=== PATIENT | female | born 1965 | race American Indian/Alaskan Native ===

== ENCOUNTER 2016-06-15 09:29 | Day surgery (SDC) | payer MEDICARE ==
[2016-06-15] MEDS ORDERED: WATER FOR IRRIG STERILE IR ONE (09:55)
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
--- NOTE | 2016-06-15 10:13 | Anesthesia Day of Surgery ---
Anesthesia Day of Surgery - Day of Surgery Patient Examined: Yes Patient H&P Reviewed: Yes Patient is NPO: Yes
[2016-06-15] MEDS ORDERED: DIPRIVAN 10 MG/ML IV ONE ×2 (10:46→12:18)
[2016-06-15] MEDS ORDERED: NACL 0.9% 1000 ML 1,000 ML IV SCH (11:00)
[2016-06-15] MEDS ORDERED: XYLOCAINE MPF 2% ONE (12:10)
--- NOTE | 2016-06-15 12:47 | Operative Report ---
Operative Report Operative Report: Date of procedure: 06/15/2016 Procedure: Esophagogastroduodenoscopy with multiple mucosal biopsies Attending physician: Markus Frost MD Dough Catcher: Markus Frost MD Indication: Patient is a 51-year-old female who presented with history of epigastric pain and nausea vomiting with persistent symptoms. An upper endoscopy is done to assess patient so that treatment may be directed based on the findings. Consent: Informed consent was obtained after advising the patient and family regarding nature of this procedure, its indications, potential benefits as well as possible complications including but not limited to bleeding perforation and adverse reaction to medication, infection as well as other cardiopulmonary complications. An informed written and verbal consent was then obtained after due opportunity was provided for questions and answers. Monitoring: Patient was monitored continuously with pulse oximetry and electrocardiographic recordings as well as blood pressure recordings. Vital signs remained stable throughout this procedure with no untoward events. Preoperative assessment: Patient was assessed immediately prior to this procedure for capacity to tolerate monitored anesthesia care and moderate sedation as well as general anesthesia. Patient's ASA classification is 2, Mallampati class is 2, Hyomental distance is 3. Instrument: Live Shuttle video endoscope Medications: Propofol given intravenously in divided doses. For details please refer to anesthesia records. Description of procedure: Patient was placed in the left lateral decubitus position after achieving sedation, the endoscope was introduced into the esophagus under direct vision. It was then advanced beyond the esophagus into the stomach and then beyond the stomach into the duodenum and to the second portion of the duodenum. It was subsequently withdrawn with careful inspection of all mucosal surfaces with the following findings. Findings: The Z line was irregular. There was gastric antral erythema with surrounding erosions and edema that was diffusely distributed throughout the antrum and part of the gastric body. These changes were significant and suggest underlying gastritis. Biopsies of the antrum were obtained for histopathology. The duodenum was normal to second portion. Impression: Irregular Z line. Mucosal changes suggestive of underlying moderate to severe gastritis. Patient is status post biopsies of the gastric antrum. Plan: Continue treatment proton pump inhibitors Follow pathology report and direct additional treatment based on the pathology report.
--- NOTE | 2016-06-15 12:48 | Discharge Summary ---
Short Stay Discharge Plan Activity: advance as tolerated Weight Bearing Status: Weight Bear as Tolerated Diet: regular Additional Instructions: Post Sedation D/C Instructions When you return home you may resume your regular diet unless otherwise directed. -Go directly home from the hospital and rest quietly. You may resume normal activities tomorrow. -Do NOT drive, return to work, operate any machinery or make any important personal or business decisions today. -Do NOT drink any alcohol or take nerve or sleeping drugs. They add to the effects of the medicine still present in your body.
--- NOTE | 2016-06-15 12:48 | Post Anesthesia Evaluation ---
- Post Anesthesia Evaluation Patient Participated: Yes Airway Patent: Yes Stable Respiratory Function: Yes Nausea/Vomiting: No Temp > 96.8F: Yes Pain Manageable: Yes Adequeate Hydration: Yes Anesthesia Complications: No
[2016-06-15 12:54] VITALS: BP 119/79
== END 2016-06-15 09:30 | disposition home or self-care (01) ==
LOC: GIO 09:29
PROVIDERS: ATTEND Internal Medicine Gastroenterology
DX: K29.50 Unspecified chronic gastritis without bleeding (principal); K22.8 Other specified diseases of esophagus; K21.9 Gastro-esophageal reflux disease without esophagitis; Z87.09 Personal history of other diseases of the respiratory system; Z80.0 Family history of malignant neoplasm of digestive organs; Z80.1 Family history of malignant neoplasm of trachea, bronchus and lung; Z84.1 Family history of disorders of kidney and ureter
CPT/HCPCS: 43239; 88305; 88342; J2704; J7030

== ENCOUNTER 2016-12-14 11:58 | Day surgery (SDC) | payer MEDICARE ==
--- NOTE | 2016-12-14 12:28 | Anesthesia Consultation ---
Anesthesia Consult and Med Hx Date of service: 12/14/16 - Airway Anesthetic Teeth Evaluation: Good, Caps (#9 steward cap) ROM Head & Neck: Adequate Mental/Hyoid Distance: Adequate Mallampati Class: Class II Intubation Access Assessment: Probably Good - Pre-Operative Health Status ASA Pre-Surgery Classification: ASA2 Proposed Anesthetic Plan: MAC - Gastrointestinal Hx Gastroesophageal Reflux Disease: Yes (h/o colon polyps)
--- NOTE | 2016-12-14 12:29 | Anesthesia Day of Surgery ---
Anesthesia Day of Surgery - Day of Surgery Patient Examined: Yes Patient H&P Reviewed: Yes Patient is NPO: Yes
--- NOTE | 2016-12-14 12:34 | History and Physical Report ---
History of Present Illness Date of examination: 12/14/16 Date of admission: 12/14/2016 Chief complaint: Colorectal cancer screening. History of present illness: Patient is a 51-year-old female who presents for colorectal cancer screening. She has a past history of colon polyps. Past History Past Surgical History: Other (bilateral tubal ligation.) Social history: smoking. denies: alcohol abuse Family history: hypertension Medications and Allergies Allergies Allergy/AdvReac Type Severity Reaction Status Date / Time No Known Allergies Allergy Verified 12/14/16 12:06 Home Medications Medication Instructions Recorded Confirmed Last Taken Type Dicyclomine [Bentyl] 20 mg PO QID #20 tablet 09/08/13 06/15/16 06/01/16 Rx Ondansetron [Zofran] 8 mg PO Q8HR PRN #10 tablet 09/08/13 06/15/16 03/17/16 Rx traMADol [Ultram] 50 mg PO Q6HR PRN 06/15/16 06/15/16 06/01/16 History Active Meds: Active Medications Sodium Chloride (Nacl 0.9% 1000 Ml) 1,000 mls @ 50 mls/hr IV DIRECT DAGOBERTO Review of Systems All systems: negative Exam - Constitutional Vitals: Temp Pulse Resp BP Pulse Ox 97 F L 64 12 113/70 97 12/14/16 12:28 12/14/16 12:28 12/14/16 12:28 12/14/16 12:28 12/14/16 12:28 General appearance: Present: no acute distress, well-nourished - EENT Eyes: Present: PERRL ENT: hearing intact, clear oral mucosa - Neck Neck: Present: supple, normal ROM - Respiratory Respiratory effort: normal Respiratory: bilateral: CTA - Cardiovascular Heart Sounds: Present: S1 & S2. Absent: rub, click - Extremities Extremities: pulses symmetrical, No edema Peripheral Pulses: within normal limits - Abdominal General gastrointestinal: Present: soft, non-tender, non-distended, normal bowel sounds Female genitourinary: Present: normal - Integumentary Integumentary: Present: clear, warm, dry - Musculoskeletal Musculoskeletal: gait normal, strength equal bilaterally - Psychiatric Psychiatric: appropriate mood/affect, intact judgment & insight - Neurologic Neurologic: CNII-XII intact, moves all extremities Assessment and Plan Colorectal cancer screening. Past history of colon polyps. Plan full colonoscopy.
--- NOTE | 2016-12-14 12:46 | Operative Report ---
Operative Report Operative Report: Date of procedure: 12/14/2016 Procedure: Colonoscopy with Ablation Attending physician: Markus Frost MD Tube Drawing Supervisor: Markus Frost MD Indication: Patient is a 51-year-old female who presents for colorectal cancer screening. She has an underlying past history of colon polyps. A colonoscopy is done to evaluate patient so that treatment may be directed based on the findings. Consent: Informed consent was obtained after advising the patient and family regarding nature of this procedure, its indications, potential benefits as well as possible complications including but not limited to bleeding perforation and adverse reaction to medication, infection as well as other cardiopulmonary complications. An informed written and verbal consent was then obtained after due opportunity was provided for questions and answers. Monitoring: Patient was monitored continuously with pulse oximetry and electrocardiographic recordings as well as blood pressure recordings. Vital signs remained stable throughout this procedure with no untoward events. Preoperative assessment: Patient was assessed immediately prior to this procedure for capacity to tolerate monitored anesthesia care and moderate sedation as well as general anesthesia. Patient's ASA classification is 2, Mallampati class is 2, Hyomental distance is 3. Instrument: [employer] videocolonoscope Medications: Propofol, given intravenously in divided doses for details please refer to anesthesia records. Description of procedure: Patient was placed in the left lateral decubitus position after achieving sedation, a digital rectal examination was performed following which the colonoscope was introduced into the anal verge and advanced to the cecum which was identified by the cecal valve, the appendiceal orifice, as well as by the cecal strap and direct transillumination. The colonoscope was subsequently withdrawn with careful inspection of all mucosal surfaces. Patient tolerated this procedure well and was subsequently taken to the recovery room. The following findings were noted. Findings: Patient had a few scattered diverticula in sigmoid colon. There was a diminutive flat polyp also seen in the sigmoid colon which was completely ablated. The rest of the colon to the cecum was normal. On the retroflex view at the anal verge, patient had internal hemorrhoids. Impression: Diminutive sigmoid colon polyp status post ablation. Diverticular disease of colon. Internal hemorrhoids. Plan: High-fiber diet. Repeat colonoscopy in 5 years.
[2016-12-14] MEDS ORDERED: NACL 0.9% 1000 ML 1,000 ML IV SCH (13:00)
[2016-12-14] MEDS ORDERED: DIPRIVAN 10 MG/ML IV ONE ×2 (13:04)
[2016-12-14] MEDS ORDERED: WATER FOR IRRIG STERILE ONE (13:05)
[2016-12-14] MEDS ORDERED: WATER FOR IRRIG STERILE IR ONE (13:05)
[2016-12-14 13:52] VITALS: BP 126/77
== END 2016-12-14 11:59 | disposition home or self-care (01) ==
LOC: GIO 11:58
PROVIDERS: ATTEND Internal Medicine Gastroenterology
DX: Z09 Encounter for follow-up examination after completed treatment for conditions other than malignant neoplasm (principal); K63.5 Polyp of colon; K64.8 Other hemorrhoids; K21.9 Gastro-esophageal reflux disease without esophagitis; K57.30 Diverticulosis of large intestine without perforation or abscess without bleeding; Z87.19 Personal history of other diseases of the digestive system; Z98.51 Tubal ligation status; Z79.899 Other long term (current) drug therapy; Z87.891 Personal history of nicotine dependence; Z82.49 Family history of ischemic heart disease and other diseases of the circulatory system
CPT/HCPCS: 45388; J2704; J7030